=== PATIENT | female | born 1950 ===

== ENCOUNTER 2016-11-13 16:21 | Emergency (ER) | payer SELFPAY ==
[~2016-11-13] VITALS: Ht 157.5 cm; Wt 86.4 kg
[2016-11-13 16:42] VITALS: Ht 157.5 cm; Wt 86.4 kg
== END 2016-11-13 20:00 | disposition left against medical advice (07) ==
LOC: E/R 16:21
DX: Z53.21 Procedure and treatment not carried out due to patient leaving prior to being seen by health care provider (principal)
CPT/HCPCS: 93005